=== PATIENT | male | born 1975 | race Caucasian/White ===

== ENCOUNTER → 2021-09-18 09:24 | Outpatient (REF) | payer OTHER, SELFPAY ==
--- NOTE | 2021-09-18 09:30 | CA_ITS ---
Transthoracic Echocardiogram Patient (Last, First, Middle): Elbert Tapia B Gender: Male Date of : 1975 Age: 45 Procedure Date: 09/18/2021 Procedure Type: Transthoracic Echocardiogram Location: OP Height: 182.88 cm Weight: 127.01 kg BSA: 2.46 m2 Heart Rate: bpm BP: 128 / 80 mmHg Manager Risk: BOWEN Kunz MD: Coco Mtz Carrier Blower: Franklyn William MD Symptoms: I10 HTN R60.0 EDEMA Study Quality: Technically Difficult ECG Rhythm: Sinus Conclusions: - 1. Technically difficult study despite use of definity 2. Normal LV systolic function with LVEF of 60 65% with normal diastolic filling pattern 3. Limited visualization of cardiac valves with normal cardiac valvular Doppler Findings Procedure Information Contrast agent, definity, is being given per protocol without apparent complications. Left Ventricle Normal left ventricular size, thickness, and systolic function. The visually estimated ejection fraction is between 60-65%. Regional wall motion abnormalities can not be excluded due to suboptimal endocardial definition. Spectral Doppler is indicative of a normal filling pattern. Right Ventricle The right ventricle was not well visualized. Atria The left atrium is normal in size. Interatrial shunt cannot be excluded. The right atrium was not well visualized. Aortic Valve The aortic valve was not well visualized. There is no aortic valve stenosis. There is no aortic valve regurgitation. Mitral Valve The mitral valve was not well visualized. There is mild mitral annular calcification. There is no mitral valve regurgitation. There is no mitral valve stenosis. Pulmonic Valve The pulmonic valve was not well visualized. Tricuspid Valve The tricuspid valve was not well visualized. Tricuspid regurgitation envelope is inadequate for calculation of right ventricular systolic pressure. Great Vessels The aorta was not well visualized. The pulmonary artery was not well visualized. Venous The inferior vena cava was not well visualized. Pericardium/Pleural The pericardium was not well visualized. Prior Study Comparison No prior study available for comparison. Measurements 2D Linear Measurements IVSd: 1.06 0.6-0.9/0.6-1.0 cm LVIDd: 5.78 3.9-5.3/4.2-5.9 cm LVIDd Index: 2.35 2.4-3.2/2.2-3.1 cm/m2 LVIDs: 3.54 2.0-3.6 cm LVPWd: 1.00 0.7-1.1 cm Ao Root: 3.90 2.1-3.5 cm LA Diam: 3.40 2.7-3.8/3.0-4.0 cm LAIDs Index: 1.38 1.5-2.3 cm/m2 LV Mass: 299.57 67-162/88-224 g LV Mass Index: 121.78 43-95/49-115 g/m2 LVOT Diam: 2.60 3.0+(-)1.3 cm 2D Systolic Function EF 4C: 62.90 >55% EF 2C: 73.20 >55% EF BiP: 68.40 >55% Mitral Valve MV Pk E: 0.69 MV PK A: 0.72 MV Decel Time: 114.00 E/A: 1.00 E'Lateral: 12.20 E'Medial: 8.92 E/E' Med: 7.70 E/E' Lat: 5.70 PHT: 33.00 MVA PHT: 6.67 Decel [place]: 6.04 Aortic Valve AoV Pk Emmanuel: 1.40 AoV Pk Grad: 8.00 LVOT LVOT Pk Emmanuel: 1.09 LVOT Mn Emmanuel: 0.68 LVOT VTI: 0.23 LVOT Pk Grad: 5.00 LVOT Mn Grad: 2.00 LVOT Diam: 2.60 LVOT Area: 5.31 Diastolic Function MV Pk E: 0.69 MV Pk A: 0.72 E/A: 1.00 E'Medial: 8.92 E/E' Med: 7.70 E' Laterial: 12.20 E/E' Lat: 5.70 Right Ventricle TAPSE (mm): 2.76 Great Vessels Aorta Ao Root-2D: 3.90 2.0-3.7 cm Ao Asc: 3.50 2.1-3.4 cm Updated in Other Vendor System with Status of Final Franklyn William MD electronically signed on 09/18/2021 4:02:06 PM with status of Final
== END ==
LOC: HO.CARD 09:24
PROVIDERS: Absent Provider Nurse Practitioner; PCP Nurse Practitioner; Visit Provider Nurse Practitioner Family
DX: I10 Essential (primary) hypertension (principal); R60.0 Localized edema
CPT/HCPCS: 93306; Q9957

== ENCOUNTER → 2022-09-30 09:16 | Outpatient (BNVA) | payer OTHER, SELFPAY | PROVIDERS: PCP Registered Nurse; Visit Provider Surgery Vascular Surgery | DX: I83.11 Varicose veins of right lower extremity with inflammation (principal); I89.0 Lymphedema, not elsewhere classified | CPT/HCPCS: 99212 ==

== ENCOUNTER 2022-10-27 10:28 | Outpatient (REF) | payer OTHER, SELFPAY ==
--- NOTE | ~2022-10-27 | US_ITS ---
EXAMINATION: US LOWER EXTREMITY VENOUS (REFLUX EXAM), BILATERAL CLINICAL INDICATION: Chronic venous insufficiency with lower extremity varicose veins COMPARISON: None. TECHNIQUE: Color flow triplex imaging and compression Doppler was performed to evaluate both the deep and the superficial systems bilaterally. To evaluate the superficial system, the examination was performed in the upright position. Color-flow Doppler ultrasound and compression ultrasound were utilized. In addition, maneuvers were utilized to demonstrate reflux. FINDINGS: 1. DEEP VENOUS ULTRASOUND OF THE RIGHT LOWER EXTREMITY: Common Femoral Vein: Compressible, normal respiratory variation and augmented flow. Femoral Vein: Compressible, normal color flow and augmentation. Popliteal Vein: Compressible, normal augmentation. Deep Reflux: There is no evidence of reflux in the deep system in either the common femoral vein or the popliteal vein. There is no evidence of a Ch's cyst. 2. SUPERFICIAL ULTRASOUND WITH DOPPLER OF RIGHT LOWER EXTREMITY: GREAT SAPHENOUS VEIN: Saphenofemoral Junction: 1.0 cm; Reflux: 0 ms Proximal Thigh: 0.5 cm; Reflux: 0 ms Mid Thigh: 0.4 cm; Reflux: 0 ms Above Knee: 0.4 cm; Reflux: 0 ms At Knee: 0.3 cm; Reflux: 0 ms Below Knee: 0.4 cm; Reflux: 1292 ms Mid Calf: 0.3 cm; Reflux: 0 ms Ankle: 0.3 cm; Reflux: 892 ms DUPLICATED MEDIAL GREAT SAPHENOUS VEIN: Diameter: 0.5 cm Reflux: None DUPLICATED LATERAL GREAT SAPHENOUS VEIN: Diameter: None Imaged Reflux: NA SMALL SAPHENOUS VEIN: Proximal: 0.2 cm; Reflux: 0 ms Distal: 0.3 cm; Reflux: 0 ms VEIN OF GIACOMINI: None Imaged. PERFORATORS: Location: Proximal thigh, mid thigh and proximal calf Size: 0.2 to 0.4 cm Reflux: None VARICOSITIES: Location: At the knee off of the great saphenous vein Size: 0.4 cm Reflux: 2716 ms 3. DEEP VENOUS ULTRASOUND OF THE LEFT LOWER EXTREMITY: Common Femoral Vein: Compressible, normal respiratory variation and augmented flow. Femoral Vein: Compressible, normal color flow and augmentation. Popliteal Vein: Compressible, normal augmentation. Deep Reflux: There is no evidence of reflux in the deep system in either the common femoral vein or the popliteal vein. There is no evidence of a Ch's cyst. 4. SUPERFICIAL ULTRASOUND WITH DOPPLER OF LEFT LOWER EXTREMITY: GREAT SAPHENOUS VEIN: Saphenofemoral Junction: 0.8 cm; Reflux: 0 ms Proximal Thigh: 0.5 cm; Reflux: 0 ms Mid Thigh: 0.4 cm; Reflux: 0 ms Above Knee: 0.4 cm; Reflux: 2260 ms At Knee: 0.3 cm; Reflux: 680 ms Below Knee: 0.3 cm; Reflux: 0 ms Mid Calf: 0.3 cm; Reflux: 0 ms Ankle: 0.3 cm; Reflux: 0 ms DUPLICATED MEDIAL GREAT SAPHENOUS VEIN: Diameter: 0.5 cm Reflux: None DUPLICATED LATERAL GREAT SAPHENOUS VEIN: Diameter: None Imaged Reflux: NA SMALL SAPHENOUS VEIN: Proximal: 0.3 cm; Reflux: 0 ms Distal: 0.1 cm; Reflux: 0 ms VEIN OF GIACOMINI: None Imaged. PERFORATORS: Location: Proximal and mid calf Size: 0.2 to 0.3 cm Reflux: None VARICOSITIES: Location: Proximal calf Size: 0.3 cm Reflux: None US/US venous duplex LE BI IMPRESSION: Right: Focal areas of reflux in the great saphenous vein in the proximal calf and ankle. Enlarged varicose vein off the great saphenous vein at the knee with severe reflux Left: Focal areas of reflux in the great saphenous vein in the distal thigh and knee.
== END 2022-10-27 10:29 | disposition home or self-care (01) ==
LOC: HO.US 10:28
PROVIDERS: Visit Provider Surgery Vascular Surgery
DX: I83.893 Varicose veins of bilateral lower extremities with other complications (principal)
CPT/HCPCS: 93970

== ENCOUNTER → 2022-11-18 09:04 | Outpatient (BNVA) | payer OTHER, SELFPAY | PROVIDERS: PCP Registered Nurse; Visit Provider Surgery Vascular Surgery | DX: I83.12 Varicose veins of left lower extremity with inflammation (principal) | CPT/HCPCS: 99212 ==

== ENCOUNTER → 2023-01-09 08:28 | Outpatient (BNVA) | payer OTHER, SELFPAY | PROVIDERS: PCP Registered Nurse; Visit Provider Surgery Vascular Surgery | DX: I83.12 Varicose veins of left lower extremity with inflammation (principal) | CPT/HCPCS: 36482 ==

== ENCOUNTER 2023-01-12 12:27 | Outpatient (REF) | payer OTHER, SELFPAY ==
--- NOTE | ~2023-01-12 | US_ITS ---
EXAMINATION: US VENOUS ULTRASOUND WITH DOPPLER LOWER EXTREMITY, LEFT CLINICAL INFORMATION: Status post vena seal. COMPARISON: None available. TECHNIQUE: Ultrasound of the deep veins is performed from the hip to the calf with compression sonography and color and pulse Doppler assessment. Spectral analysis with color-flow imaging is performed. FINDINGS: There is normal venous compression and respiratory variation and augmented flow. The visualized common femoral vein, superficial femoral vein, profunda femoral vein, popliteal vein, and the trifurcation region shows no evidence of deep venous thrombosis. There is thrombus visualized in the greater saphenous vein approximately 2.4 cm from the venous junction. There is no significant popliteal fossa cyst. If the patient's symptoms persist, followup ultrasound in 5 days 7 days might be of value to exclude proximal propagation from a non-visualized calf vein. US/US venous duplex LE LT IMPRESSION: 1. No DVT demonstrated in the left lower extremity. 2. There is thrombus visualized in the greater saphenous vein approximately 2.4 cm from the venous junction status post vena seal procedure.
== END 2023-01-12 12:28 | disposition home or self-care (01) ==
LOC: HO.US 12:27
PROVIDERS: PCP Registered Nurse; Visit Provider Surgery Vascular Surgery
DX: M79.605 Pain in left leg (principal)
CPT/HCPCS: 93971

== ENCOUNTER → 2023-01-27 10:39 | Outpatient (BNVA) | payer OTHER, SELFPAY | PROVIDERS: PCP Registered Nurse; Visit Provider Surgery Vascular Surgery | DX: I83.12 Varicose veins of left lower extremity with inflammation (principal) | CPT/HCPCS: 99212 ==

== ENCOUNTER 2023-11-25 14:56 | Outpatient (REF) | payer OTHER, SELFPAY ==
--- NOTE | ~2023-11-25 | US_ITS ---
EXAMINATION: US VENOUS ULTRASOUND WITH DOPPLER LOWER EXTREMITY, LEFT CLINICAL INFORMATION: Left leg edema. Status post greater saphenous vein procedure. COMPARISON: 01/12/2023 TECHNIQUE: Ultrasound of the deep veins is performed from the hip to the calf with compression sonography and color and pulse Doppler assessment. Spectral analysis with color-flow imaging is performed. FINDINGS: There is normal venous compression and respiratory variation and augmented flow. The visualized common femoral vein, superficial femoral vein, profunda femoral vein, popliteal vein, and the trifurcation region shows no evidence of deep venous thrombosis. There is no significant popliteal fossa cyst. Very limited retrograde flow into the greater saphenous vein. Thrombus in the greater saphenous vein 2.9 cm from the venous junction status post Vena seal procedure is again observed, as it was on 01/12/2023. If the patient's symptoms persist, followup ultrasound in 5 days 7 days might be of value to exclude proximal propagation from a non-visualized calf vein. US/US venous duplex LE LT IMPRESSION: No DVT demonstrated in the left lower extremity.
== END 2023-11-25 14:57 | disposition home or self-care (01) ==
LOC: HO.US 14:56
PROVIDERS: Visit Provider Nurse Practitioner Family
DX: R60.0 Localized edema (principal)
CPT/HCPCS: 93971

== ENCOUNTER 2024-03-02 08:22 | Outpatient (AMB) | payer OTHER, SELFPAY ==
--- NOTE | 2024-03-02 08:23 | A.OFFVIS_ITS ---
Vital Signs 03/02/24 08:26 Height 6 ft Weight 295 lb 6.711 oz BMI 40.1 BP 114/77 Blood Pressure Location Lt brachial Position Sitting Pulse 90 Intake Visit Reasons: Colonoscopy Screening Intake Note: Elbert presents in the office as a colonoscopy screening. CC: When patient was 26 he had diverticulosis and needed to have surgery on his colon. Allergies amoxicillin [AMOXICILLIN] Allergy (Intermediate, Verified 03/02/24 08:24) HIVES Penicillins [PENICILLINS] Allergy (Intermediate, Verified 03/02/24 08:24) HIVES HPI HPI Colonoscopy Screening: Details: 48 year old?male with past medical history of hypertension, varicose veins, lymphedema with right lower leg wound, hypercholesteremia, asthma, history of diverticulitis at age 26 is here today for pre colonoscopy screening.? Last colonoscopy 5 years ago, no polyps found.? Patient had diverticulitis and had colon resection at age 26. Ten years ago or so patient had bowel obstructions due to adhesions and had surgical repair at that time.? Denies any personal or family history of gastrointestinal disease, colon polyps, or CRC.? Denies history of difficulty with sedation or anesthesia in the past.? Negative for history of sleep apnea.? Denies any history of cardiac, renal, pulmonary, or hepatic disease.?? No history of infectious? diseases like hepatitis A, B, C, HIV or tuberculosis.? Patient is not on any anticoagulation [facility] Medical History (Updated 03/02/24 @ 08:40 by Marcy Mary [facility]) Hyperlipidemia HTN (hypertension) Diverticulitis of colon with perforation Surgical History Hx of colonoscopy Status post ablation of incompetent vein using laser (~01/2023) Social History Patient Tobacco Use Status: Current everyday Tobacco user Tobacco use type: Cigarette Cigarette Packs Per Day: 1 Review of Systems Const Denies weight gain and Denies weight loss ENT Reports no additional complaints, Denies dysphagia and Denies odynophagia Card Reports no additional complaints Resp Reports no additional complaints GI Denies abdominal pain, Denies belching, Denies melena, Denies bloating, Denies change in bowel habits, Denies dysphagia, Denies excessive flatus, Denies dyspepsia, Denies heartburn, Denies diarrhea, Denies loose stools, Denies nausea, Denies odynophagia and Denies vomiting Reports no additional complaints Musc Reports no additional complaints Neuro Reports no additional complaints Psych Reports no additional complaints Endo Reports no additional complaints Physical Exam Vital Signs: Last Vital Signs Pulse 90 03/02/24 08:26 BP 114/77 03/02/24 08:26 BMI result Body Mass Index 40.1 Const General: healthy appearing and no acute distress Nutritional Appearance: well nourished and obese Orientation/consciousness: patient oriented x3 Resp Effort & Inspection: normal respiratory effort, able to speak in complete sentences, no tracheal deviation and symmetric chest movement Auscultation: clear to auscultation bilaterally Cardio Rate: regular rate GI Inspection: Yes normal to inspection, No distended and Yes obesity Palpation (GI): Soft to palpation, not firm, nontender and No hepatosplenomegaly present Auscultation: normal bowel sounds General: Yes no CVA tenderness Back/Spine/Pelvis Back: no CVA tenderness Skin General skin exam: elasticity normal, turgor normal and dry skin Neuro General: patient oriented x3 Psych Appearance: grossly normal Mental Status: mental status grossly normal Assessment & Plan Assessment & Plan (1) Screen for colon cancer: Code(s): Z12.11 - Encounter for screening for malignant neoplasm of colon Plan Patient denies any GI, cardiac or respiratory symptoms at this time.? Denies any issues with anesthesia in the past.? Denies any history of sleep apnea.? No history infectious diseases in the past or present.? Not on any anticoagulation therapy.? No family or personal history of colon cancer or polyps.? Patient denies melena, hematochezia, unintentional weight loss or ribbon like stools.? Discussed at length the pre-procedure,? prep, diet & medications as well as what to expect prior, during and after the procedure.?? Stressed the importance of good bowel prep.? Recommended the use of Vaseline or Calmoseptine OTC & baby wipes with bowel movements to promote comfort.? ?Patient verbalizes understanding and agrees to plan of care.? He was given the opportunity to ask questions and all questions answered.? We will see him after the procedure.? Medications: New bisacodyl (Dulcolax (bisacodyl)) take 4 tabs at noon the day before your colonoscopy 20 mg (4 x 5 mg) PO ONCE 1 day 4 tabs 0RF Z12.11 - Encounter for screening for malignant neoplasm of colon polyethylene glycol 3350 (Miralax) As directed by gastroenterology department at [facility] 238 grams PO ONCE 238 grams 0RF Z12.11 - Encounter for screening for malignant neoplasm of colon Coding Level of Care Code New Pt Level 3 (66749) Diagnoses Screen for colon cancer Z12.11 Time Spent (min) 40 Comment 30 minutes spent with patient and additional 10 minutes spent reviewing his records
[2024-03-02 08:26] VITALS: BP 114/77; PULSE 90; BMI 40.1
== END 2024-03-02 09:14 | disposition home or self-care (01) ==
PROVIDERS: PCP Registered Nurse; Visit Provider Nurse Practitioner Family
DX: Z12.11 Encounter for screening for malignant neoplasm of colon (principal); Z01.818 Encounter for other preprocedural examination
CPT/HCPCS: 99203

== ENCOUNTER → 2024-03-02 08:22 | Outpatient (BNVA) | payer OTHER, SELFPAY | PROVIDERS: PCP Registered Nurse; Visit Provider Nurse Practitioner Family | DX: Z12.11 Encounter for screening for malignant neoplasm of colon (principal) | CPT/HCPCS: 99202 ==

== ENCOUNTER 2024-03-04 12:34 | Outpatient (REF) | payer OTHER, SELFPAY ==
--- NOTE | ~2024-03-04 | US_ITS ---
EXAMINATION: US VENOUS ULTRASOUND WITH DOPPLER LOWER EXTREMITY, BILATERAL CLINICAL INFORMATION: Bilateral renal insufficiency with superficial thrombosis in the left lower extremity COMPARISON: 11/25/2023, 01/12/2023 TECHNIQUE: Ultrasound of the deep veins is performed from the hip to the calf with compression sonography and color and pulse Doppler assessment. Spectral analysis with color-flow imaging is performed. FINDINGS: RIGHT: There is normal venous compression and respiratory variation and augmented flow. The visualized common femoral vein, superficial femoral vein, profunda femoral vein, popliteal vein, and the trifurcation region shows no evidence of deep venous thrombosis. There is no significant popliteal fossa cyst. LEFT: There is normal venous compression and respiratory variation and augmented flow. The visualized common femoral vein, superficial femoral vein, profunda femoral vein, popliteal vein, and the trifurcation region shows no evidence of deep venous thrombosis. There is no significant popliteal fossa cyst. If the patient's symptoms persist, followup ultrasound in 5 days 7 days might be of value to exclude proximal propagation from a non-visualized calf vein. There is inguinal lymphadenopathy is seen in both groins, measured 3.8 x 1.0 x 2.1 cm on the right and 1.9 x 0.7 x 2.0 cm on the left US/US venous duplex LE BI IMPRESSION: No DVT demonstrated in bilateral lower extremity. Inguinal lymphadenopathy seen bilaterally, correlate clinically
== END 2024-03-04 12:35 | disposition home or self-care (01) ==
LOC: HO.US 12:34
PROVIDERS: Visit Provider Student in an Organized Health Care Education/Training Program
DX: R60.0 Localized edema (principal)
CPT/HCPCS: 93970

== ENCOUNTER 2024-05-24 09:54 | Outpatient (REF) | payer OTHER, SELFPAY ==
[2024-05-24 11:18] LABS: MANUAL DIFF FLAG NO
[2024-05-24 11:33] LABS: Basophils Absolute Auto 0.1 X10*3/uL (0.0-0.2); Basophils Percent Auto 0.4 % (0-2); Eosinophils Absolute Auto 0.5 X10*3/uL (0.0-0.4); Eosinophils Percent Auto 3.5 % (0-4); Hematocrit 43.6 % (42.0-52.0); Hemoglobin 14.4 g/dl (14.0-18.0); Imm Gran Abs Auto 0.07 X10*3/uL (0.00-0.03); Imm Gran Pct Auto 0.5 % (0.0-0.4); Lymphocytes Absolute Auto 2.5 X10*3/uL (1.2-4.9); Lymphocytes Percent Auto 19.1 % (20-40); Mean Corpuscular Hemoglobin 28.3 pg (27.0-33.0); Mean Corpuscular Volume 85.8 fL (80.0-98.0); Mean Platelet Volume 9.7 fL (9.4-12.4); Monocytes Absolute Auto 0.8 X10*3/uL (0.1-1.2); Monocytes Percent Auto 6.1 % (2-11); Neutrophils Percent Auto 70.4 % (45-73); Platelet Count 347 X10*3/uL (160-400); Red Blood Count 5.08 X10*6/uL (4.60-5.80); Red Cell Distribution Width 12.2 % (11.0-16.0); White Blood Count 12.9 X10*3/uL (4.8-10.8)
[2024-05-24 11:34] LABS: Estimated Average Glucose 108 mg/dL; Hemoglobin A1c % 5.4 % (<6.0)
[2024-05-24 12:08] LABS: Alanine Aminotransferase 11 U/L (0-40); Albumin Level 4.2 g/dL (3.5-5.0); Alkaline Phosphatase 68 U/L (39-117); Anion Gap 13 (12-20); Aspartate Amino Transferase 16 U/L (5-37); Bilirubin Total 0.4 mg/dL (0.0-1.0); Blood Urea Nitrogen 15 mg/dL (9-16); Carbon Dioxide 30 mmol/L (22-29); Chloride 102 mmol/L (96-108); Cholesterol 148 mg/dL (<200); Estimated Glomerular Filt Rate > 60; Glucose Random 99 mg/dL (60-115); HDL Cholesterol 34 mg/dL (>40); LDL Cholesterol Calculated 85 mg/dL (<100); Sodium 141 mmol/L (135-145); Total Protein 7.6 g/dL (6.5-8.0); Triglycerides 147 mg/dL (<150)
[2024-05-24 12:10] LABS: HBS Num1 0.53 mIU/mL (0-7.99); HBc Num1 0.25 S/CO (0.00-0.79); HBsAGNum1 0.31 S/CO (0.00-0.99); HIV AB/AG Nonreactive (Nonreactive); HIV Num 1 0.12 S/CO (0.00-0.99); Hepatitis B Core Antibody Nonreactive (Nonreactive); Hepatitis B Surface Antigen Negative (Negative); ~HepC Num1 0.22 S/CO (0.00-0.79); ~Hepatitis B Surface Antibody NONREACTIVE (Nonreactive); ~Hepatitis C Antibody Nonreactive (Nonreactive)
[2024-05-24 12:11] LABS: Syphilis Screen Nonreactive (Nonreactive)
[2024-05-24 12:17] LABS: TSH reflex Free T4 1.29 uIU/mL (0.32-4.0); Vitamin D 25-OH Total 34.6 ng/mL (>30)
== END 2024-05-24 09:55 | disposition home or self-care (01) ==
LOC: HO.HHCL 09:54
PROVIDERS: Nurse Practitioner Family; Visit Provider Student in an Organized Health Care Education/Training Program
DX: Z00.00 Encounter for general adult medical examination without abnormal findings (principal); Z11.4 Encounter for screening for human immunodeficiency virus [HIV]; E66.01 Morbid (severe) obesity due to excess calories
CPT/HCPCS: 36415; 80053; 80061; 82306; 83036; 84443; 85025; 86704; 86706; 86780; 86803; 87340; 87389

== ENCOUNTER 2024-06-02 14:56 | Outpatient (AMB) | payer OTHER, SELFPAY ==
--- NOTE | 2024-06-02 15:07 | A.OFFVIS_ITS ---
Vital Signs 06/02/24 15:08 Height 6 ft Weight 295 lb BMI 40.0 Intake Visit Reasons: PCP re-referral Lymphedema Hx ablations 2022 Intake Note: follow up LE swelling w/ Hx of Left Venaseal 01/09/23. Pt states his legs are feeling much better and has been exercising and eating healthier, states he lost weight since last visit, he is wearing compression when on his feet but still gets some swelling bilateral LE. Accompanied by: Self / Same As Patient Allergies amoxicillin [AMOXICILLIN] Allergy (Intermediate, Verified 06/02/24 15:11) HIVES Penicillins [PENICILLINS] Allergy (Intermediate, Verified 06/02/24 15:11) HIVES HPI HPI PCP re-referral Lymphedema Hx ablations 2022: Details: Very pleasant 48-year-old gentleman presents for follow-up regarding lower extremities. He had undergone left great saphenous vein Cyanoacralate ablation on 01/09/2023. He reports he was doing fairly well with that. In addition he has gotten back into exercise. He has has actually lost nearly 55 lb. 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 He now presents for routine follow-up. [facility] Medical History Hyperlipidemia HTN (hypertension) Diverticulitis of colon with perforation Surgical History Hx of colonoscopy Status post ablation of incompetent vein using laser (~01/2023) Social History Patient Tobacco Use Status: Current everyday Tobacco user Tobacco use type: Cigarette Cigarette Packs Per Day: 1 Review of Systems Const All systems reviewed & are unremarkable except as noted in HPI and below Reports no additional complaints ENT Reports Normal hearing present Card Denies chest pain, Denies chest pain at rest, Denies chest pain with activity and Denies pedal edema Resp Denies cough GI Denies abdominal pain Musc Denies abnormal gait, Denies muscle cramps and Denies radiating pain into limb Skin/Breast Denies skin ulcer and Denies wounds Neuro Reports Normal hearing present and Denies abnormal gait Psych Reports no additional complaints Physical Exam Vital Signs: BMI result Body Mass Index 40.0 Const General: cooperative, healthy appearing and comfortable Orientation/consciousness: oriented to person, oriented to place and oriented to time HEENT Head: Yes normal to inspection Neck Neck: Yes normal visual inspection Carotids: no bruits Chest Chest palpation & inspection: normal inspection of the chest Resp Effort & Inspection: normal respiratory effort and able to speak in complete sentences Auscultation: clear to auscultation bilaterally, no crackles, no rales, no rhonchi and no wheezes Cardio Rate: regular rate Rhythm: regular rhythm Heart sounds: S1 normal heart sound present and S2 normal heart sound present Bruits: no carotid bruits Peripheral pulses: Peripheral pulses 2+ throughout GI Inspection: Yes normal to inspection Skin Wounds: no wounds Hair: normal Neuro General: oriented to person, oriented to place and oriented to time Cranial nerves: Yes CN's II-XII intact bilaterally and Yes Normal hearing present Cognition (Neuro): normal cognition Motor exam (neuro): 5/5 motor strength present throughout Extrem Other: venous exam: +1 edema General: No clubbing, No cyanosis and Yes edema Psych Appearance: grossly normal Mental Status: mental status grossly normal Speech and movement: Normal speech and movement present Assessment & Plan Assessment & Plan (1) Varicose veins of left lower extremity with inflammation: Comment: 01/09/2023 - left great saphenous vein Cyanoacralate ablation Code(s): I83.12 - Varicose veins of left lower extremity with inflammation Category: Medical Plan: In short patient has legs are doing significantly better. I did congratulate him on his weight loss and his overall health. He is doing much better with his lower extremities. He is compliant with compression. We once again did discus s routine conservative measures including compression elevation and exercise. At the current time I do believe his legs are doing very well. Should he require additional assistance with the swelling in the future such as lymphedema pumps would be happy to see him once again. Is stable from our perspective and will follow up with us on an as-needed basis. Thank you for allowing us to assist in his care. If there are any questions or concerns please do not hesitate to contact us. Coding Level of Care Code Est Pt Level 3 (50866) Diagnoses Varicose veins of left lower extremity with inflammation I83.12
[2024-06-02 15:08] VITALS: BMI 40.0
== END 2024-06-02 15:24 | disposition home or self-care (01) ==
PROVIDERS: Visit Provider Surgery Vascular Surgery
DX: I83.12 Varicose veins of left lower extremity with inflammation (principal)
CPT/HCPCS: 99213

== ENCOUNTER → 2024-06-02 14:56 | Outpatient (BNVA) | payer OTHER, SELFPAY | PROVIDERS: Visit Provider Surgery Vascular Surgery | DX: I83.12 Varicose veins of left lower extremity with inflammation (principal) | CPT/HCPCS: 99212 ==

== ENCOUNTER 2024-08-18 06:29 | Day surgery (SDC) | payer OTHER, SELFPAY ==
[2024-08-16 13:41] VITALS: BMI 40.1
[2024-08-18 06:53] VITALS: BP 136/88; PULSE 85; RESP 16; TEMP 36.6; O2SAT 93
[2024-08-18] MEDS: Lactated Ringers 1,000 ML 100 ML IVCONT (07:00)
--- NOTE | 2024-08-18 07:50 | MHC.SHP ---
Pre-Procedural Eval Section A - 24 Hr Update-Section A only Date of Service: 08/18/24 Section B - Complete if H&P > 30 days Chief Complaint: screening Details of Present Illness: Hyperlipidemia HTN (hypertension) Diverticulitis of colon with perforation Surgical History Hx of colonoscopy Status post ablation of incompetent vein using laser (~01/2023) Present Medications: see Short Stay Collaborative assessment Allergies: Allergies Allergy/AdvReac Type Severity Reaction Status Date / Time amoxicillin [AMOXICILLIN] Allergy Intermediate HIVES Verified 06/02/24 15:11 Penicillins [PENICILLINS] Allergy Intermediate HIVES Verified 06/02/24 15:11 Review of Systems Review of Systems Comment: Ten point ROS negative Exam Exam Comment: Gen appear: No acute distress HEENT: no icterus Chest: No overt resp distress Abd: soft, nontender, nondistended Psych: Stable affect, answering questions appropriately Neuro: A/Ox3 noted to move all extremities spontaneously Ext: no peripheral edema Plan Diagnosis/Plan: Unchanged I have reviewed the history and physical and performed a pertinent physical examination on my patient. No changes have occurred unless specified. Time Spent With Patient Time: Total time managing care of this patient today ____ minutes.
--- NOTE | 2024-08-18 08:05 | HO.ANESPROP2 ---
Documented by User: Sally Coulter NP 08/17/24 08:35 HPI - Anesthesia Eval Consult details Narrative: 48yo M for Colonoscopy BMI 40 PMFSH Active Problems Active Problems: All Active Problems Varicose veins of left lower extremity with inflammation (Acute) Lymphedema (Acute) Varicose veins of right lower extremity with inflammation (Acute) Past Medical History Medical History Hyperlipidemia HTN (hypertension) Diverticulitis of colon with perforation Surgical History Surgical History Hx of colonoscopy Status post ablation of incompetent vein using laser (~01/2023) Social History Social History Patient Tobacco Use Status: Current everyday Tobacco user Tobacco use type: Cigarette Cigarette Packs Per Day: 1 Advance Directives: No Advance Directives Information Provided: Yes Meds Allergies Allergy/AdvReac Type Severity Reaction Status Date / Time amoxicillin [AMOXICILLIN] Allergy Intermediate HIVES Verified 06/02/24 15:11 Penicillins [PENICILLINS] Allergy Intermediate HIVES Verified 06/02/24 15:11 Home Medications ?Medication ?Instructions ?Recorded ?Confirmed ?Last Taken ?Type albuterol sulfate 2.5 mg/0.5 mL mg inhalation DAILY 09/30/22 Unknown History solution for nebulization atorvastatin 20 mg tablet 20 mg PO DAILY 09/30/22 08/16/24 Unknown History furosemide 20 mg tablet 40 mg PO QAM 09/30/22 08/16/24 Unknown History olmesartan 20 mg tablet 20 mg PO DAILY 01/27/23 08/16/24 Unknown History Exam Height,Weight and Vital Signs: Height 6 ft Weight 134 kg Assessment and Plan Assessment Anesthesia Assessment: Chart Reviewed Documented by User: Annette Aviles DO 08/18/24 08:08 PMFSH Past Medical History Medical History Hyperlipidemia HTN (hypertension) Diverticulitis of colon with perforation Family History Family history of problems with anesthesia: No Surgical History Surgical History Hx of colonoscopy Status post ablation of incompetent vein using laser (~01/2023) History of Problems with Anesthesia: No Social History Social History Patient Tobacco Use Status: Current everyday Tobacco user Tobacco use type: Cigarette Cigarette Packs Per Day: 1 Advance Directives: No Advance Directives Information Provided: Yes Meds Allergies Allergy/AdvReac Type Severity Reaction Status Date / Time amoxicillin [AMOXICILLIN] Allergy Intermediate HIVES Verified 06/02/24 15:11 Penicillins [PENICILLINS] Allergy Intermediate HIVES Verified 06/02/24 15:11 Home Medications ?Medication ?Instructions ?Recorded ?Confirmed ?Last Taken ?Type albuterol sulfate 2.5 mg/0.5 mL mg inhalation DAILY 09/30/22 Unknown History solution for nebulization atorvastatin 20 mg tablet 20 mg PO DAILY 09/30/22 08/16/24 Unknown History furosemide 20 mg tablet 40 mg PO QAM 09/30/22 08/16/24 Unknown History olmesartan 20 mg tablet 20 mg PO DAILY 01/27/23 08/16/24 Unknown History Exam Exam Date and Time: 08/18/24 0805 Height,Weight and Vital Signs: Height 6 ft Weight 134 kg Vital Signs Temperature 97.8 F 08/18/24 06:53 Pulse Rate 85 08/18/24 06:53 Respiratory Rate 16 08/18/24 06:53 Blood Pressure 136/88 08/18/24 06:53 Pulse Oximetry 93 08/18/24 06:53 Oxygen Delivery Method Room Air 08/18/24 06:53 Temperature 97.8 F 08/18/24 06:53 Pulse Rate 85 08/18/24 06:53 Respiratory Rate 16 08/18/24 06:53 Blood Pressure 136/88 08/18/24 06:53 Pulse Oximetry 93 08/18/24 06:53 Oxygen Delivery Method Room Air 08/18/24 06:53 Airway Mallampati Class: III TM Dist: >3cm Neck ROM: Full Loose/Missing/Broken Teeth: Yes (multiple broken/missing teeth) Heart: S1S2 Lungs: CTAB Assessment and Plan Assessment Anesthesia Assessment: Anesthesia Plan Discussed and Chart Reviewed Final Anesthetic Review Family History of Problems with Anesthesia: No History of Problems with Anesthesia: No NPO: Yes ASA Class: II Final Preanesthetic Review: No Changes in Pt Med Stat, Meds/Allgs Chart Reviewed, Consent Obtained/Reviewed and Anes Risks/Benef Reviewed Patient Risk: Low Procedure Risk: Low Anesthetic Plan Anesthetic Plan: MAC: and Agree w/ Assess. and Plan Disposition: Standard PACU
--- NOTE | 2024-08-18 09:17 | P.OPN-COLO_ITS ---
Colonoscopy Operative Note Operative Note Date of Service: 08/18/24 Narrative: Procedure: Colonoscopy Indication: Screening, hx of complicated diverticulitis Endoscopist: Mine Nascimento MD Anesthesia Provider: Barbara Galeana CRNA Anesthesia type: MAC Instrument: Olympus [id number]-[id number] Consent: Indication, risks vs benefits, and alternatives were discussed with the patient who gave written informed consent to proceed. EKG, pulse, pulse oximetry and blood pressure were monitored throughout the procedure. Please see shirazst lima flowsheet. Procedure: The patient was brought to the procedure room and placed in the left lateral decubitus position. IV medications were administered by the anesthesia provider in attendance. A digital rectal exam was performed which was abnormal due to finding of hemorrhoids. A distal attachment cap was affixed to the tip of the colonoscope which was then inserted through the anus and advanced through the colon to the cecum at 70 cm,and terminal ileum. Appendiceal orifice and ileocecal valve were identified. Mucosa was carefully examined under high defin ition white light as the instrument was slowly withdrawn in a retrograde panoramic fashion. Retroflexion was performed in rectum. The procedure was not difficult. There were no immediate obvious complications. The quality of the prep was BBPS: 2+1+2 = inadequate Withdrawal time 9 minutes. Limitations: Poor prep. Findings: Mucosa: Copious opaque liquid and semi solid stool and debris throughout the colon precluding evaluation of underlying mucosa. There was a colo-colonic anastomosis in the distal sigmoid colon. Protruding lesions: * Medium internal hemorrhoids without stigmata of recent bleeding. Excavated lesions: * Severe diverticulosis of left sided colon. Impression: 1. Poor prep 2. Surgical anastomosis 3. Diverticulosis 4. External and internal hemorrhoids Recommendations: - Repeat colo within 12 months
[2024-08-18 09:24] VITALS: BP 104/66; PULSE 84; RESP 16; TEMP 36.1; O2SAT 93
[2024-08-18 09:35] VITALS: BP 138/86; PULSE 79; RESP 16; TEMP 36.2; O2SAT 94
== END 2024-08-18 09:55 | disposition home or self-care (01) ==
PROVIDERS: PCP Student in an Organized Health Care Education/Training Program; Visit Provider Internal Medicine
PROC: 0DJD8ZZ Inspection of Lower Intestinal Tract, Via Natural or Artificial Opening Endoscopic (ICD-10-PCS; CPT 45378; principal; 2024-08-18 07:40)
DX: Z12.11 Encounter for screening for malignant neoplasm of colon (principal); Z87.19 Personal history of other diseases of the digestive system; Z98.0 Intestinal bypass and anastomosis status; K57.30 Diverticulosis of large intestine without perforation or abscess without bleeding; K64.8 Other hemorrhoids; K64.4 Residual hemorrhoidal skin tags; I10 Essential (primary) hypertension; E78.5 Hyperlipidemia, unspecified; Z79.899 Other long term (current) drug therapy; Z88.0 Allergy status to penicillin; Z88.1 Allergy status to other antibiotic agents; F17.210 Nicotine dependence, cigarettes, uncomplicated
CPT/HCPCS: 45378; J2003; J2704

== ENCOUNTER → 2024-08-18 06:29 | Outpatient (BNV) | payer OTHER, SELFPAY | PROVIDERS: PCP Student in an Organized Health Care Education/Training Program; Visit Provider Internal Medicine | DX: Z12.11 Encounter for screening for malignant neoplasm of colon (principal); K57.30 Diverticulosis of large intestine without perforation or abscess without bleeding; Z91.199 Patient's noncompliance with other medical treatment and regimen due to unspecified reason; K64.8 Other hemorrhoids | CPT/HCPCS: 45378 ==

== ENCOUNTER 2025-08-04 10:57 | Outpatient (REF) | payer OTHER, SELFPAY ==
--- OUTSIDE RECORDS SUMMARY | 2025-08-04 10:00 | XMS_ITS | Encounter Summary ---
Author Organization [employer] Address [address] [place] [address] Care Team Providers Care Maintenance Fitter Name Role Phone Nicole La MD Primary Care Pro vider Encounter Details Date Type Department Care Team (Latest Contact Info) Description 08/04/2025 10:00 AM EDT Office Visit [facility] [address] [place] [address] Morbid obesity (CMS/HCC) (HCC) (Primary Dx); Venous insufficiency of both lower extremities; Penicillin allergy; Preop examination Social History Tobacco Use Types Packs/Day Years Used Date Smoking Tobacco: Every Day Cigarettes 0.8 7 Passive Smoke Exposure: Current Smokeless Tobacco: Never Comments:Started smoking at his 12 y of age until now ,stopped for 4 years but again again. 1 PQT a day ,smoking in average for 32 y . PQT a year calc 32 Alcohol Use Standard Drinks/Week Comments Yes 0 (1 standard drink = 0.6 oz pur e alcohol) social Depression Answer Date Recorded Patient Health Questionnaire-9 Score 1 08/04/2025 Patient Health Questionnaire-9 Score 1 08/04/2025 Last PHQ-9: Questionnaire Data Not on file 1 Housing Stability Answer Date Recorded What is your housing situation today? I have elsaelena rhodes 08/04/[address] you li ve. Do you have problems with any of the following? None of the above 08/04/2025 Food Insecurity Answer Date Recorded Within the past 12 months, y ou worried that your food would run out before you got money to buy more: Never True 08/04/2025 Within the past 12 months,th e food you bought just didn't last and you didn't have enough money to get more: Never True Transportation Answer Date Recorded In the past 12 months, has l ack of transportation kept you from medical appts, meetings, work or from getting things needed for daily living? No 08/04/2025 Utilities Answer Date Recorded In the past 12 months, has t he electric, gas, oil or water company threatened to shut off services in your home? No 08/04/2025 Depression Answer Date Recorded Patient Health Questionnaire-2 Score 0 08/04/2025 Internet Access Answer Date Recorded Internet Access Q1 Yes 08/04/2025 Internet Access Q2 Not on file 08/04/2025 Sex and Gender Information Value Date Recorded Sex Assigned at Male 08/04/2022 10:38 AM EDT Legal Sex Male 10:38 AM EDT Gender Identity Male 08/04/2022 10:38 AM EDT Sexual Orientation Straight 08/04/2022 10 :38 AM EDT documented as of this encounter Last Filed Vital Signs Vital Sign Reading Time Taken Comments Blood Pressure 132/72 08/04/2025 11:22 AM EDT Pulse 77 08/04/2025 10:07 AM EDT Temperature 36 C (96.8 F) 08/04/2025 10:07 AM EDT Respiratory Rate 18 08/04/2025 10:07 AM EDT Oxygen Saturation 98% 08/04/2025 10:07 AM EDT Inhaled Oxygen Concentration - - Weight 139 kg (306 lb) 08/04/2025 10:07 AM EDT Height 182.9 cm (6') 08/04/2025 10:07 AM EDT Body Mass Index 41.5 08/04/2025 10:07 AM EDT documented in this encounter Functional Status * Over the past 2 weeks, how often have you been bothered by any of the following problems? Question Answer Date of Assessment Author Patient Health Questionnaire -2 Score 0 08/04/2025 10:20 AM EDT Garland Jones MA * Little interest or pleasure in doing things Answer Date of Assessment Author Not at all 08/04/2025 10:20 AM EDT Madeline Jones MA * Feeling down, depressed, or hopeless Answer Date of Assessment Author Not at all 08/04/2025 10:20 AM EDT Madeline Jones MA * Trouble falling or staying asleep, or sleeping too much Answer Date of Assessment Author Several days 08/04/2025 10:20 AM Madeline Martin MA * Feeling tired or having little energy Answer Date of Assessment Author Not at all 08/04/2025 10:20 AM Madeline Martin MA * Poor appetite or overeating Answer Date of Assessment Author Not at all 08/04/2025 10:20 AM Madeline Martin MA * Feeling bad about yourself - or that you are a failure or have let yourself or your family down Answer Date of Assessment Author Not at all 08/04/2025 10:20 AM Madeline Martin MA * Trouble concentrating on things, such as reading the newspaper or watching television Answer Date of Assessment Author Not at all 08/04/2025 10:20 AM Madeline Martin MA * Moving or speaking so slowly that other people could have noticed? Or the opposite - being so fidgety or restless that you have been moving around a lot more than usual. Answer Date of Assessment Author Not at all 08/04/2025 10:20 AM Madeline Martin MA * Thoughts that you would be better off or hurting yourself in some way Answer Date of Assessment Author Not at all 08/04/2025 10:20 AM Madeline Martin MA * Patient Health Questionnaire-9 Score Answer Date of Assessment Author 1 08/04/2025 10:20 AM Madeline Martin MA * How difficult have these problems made it for you to do your work, take care of things at home, or get along with other people? Answer Date of Assessment Author Not difficult at all 08/04/2025 10:20 AM Madeline Rodriguez MA * Over the last 2 weeks, how often have you been bothered by any of the following problems? Question Answer Date of Assessment Author Feeling nervous, anxious, or on edge 1 08/04/2025 10:21 AM Garland Martin MA Not being able to stop or control worrying 0 08/04/2025 10:21 AM Garland Martin MA Worrying too much about different things 1 08/04/2025 10:21 AM EDT Garland Jones MA Trouble relaxing 0 08/04/2025 10:21 AM EDT Madeline Jones MA Being so restless that it is hard to sit still 0 08/04/2025 10:21 AM EDT Garland Jones MA Becoming easily annoyed or irritable 1 08/04/2025 10:21 AM EDT Garland Jones MA Feeling afraid as if somethi ng awful might happen 0 08/04/2025 10:21 AM EDT Garland Jones MA [id number] Total Score 3 08/04/2025 10:21 AM EDT Madeline Jones MA documented as of this encounter Plan of Treatment Scheduled Orders Name Type Priority Associated Diagnoses Orde r Schedule CBC auto differential Lab Routine Preop examination Expected: 08/04/2025 (Approximate), Expires: 08/04/2026 Comprehensive Metabolic Panel Lab Routine Preop examination Expected: 08/04/2025 (Approximate), Expires: 08/04/2026 documented as of this encounter Procedures Procedure Name Priority Date/Time Associated Diagnosis Comments ECG 12-LEAD Routine 08/04/2025 11:24 AM EDT Preop examination documented in this encounter Results * ECG 12 lead (08/04/2025 11:24 AM EDT) Narrative Suzette Anderson NP - 08/04/2025 11:24 AM EDT Normal sinus rhythm HR- [address] changes us Suzette Anderson NP ECG ORDERABLES Final Result documented in this encounter Visit Diagnoses Diagnosis Morbid obesity (CMS/HCC) (HCC)- Primary Morbid obesity Venous insufficiency of both lower extremities Penicillin allergy Personal history of allergy to penicillin Preop examination Unspecified pre-operative examination documented in this encounter Additional Health Concerns Assessment Noted Time PHQ-9 Depression Total Score: 1 08/04/20 25 10:20 AM EDT documented as of this encounter Care Teams Maintenance Fitter Relationship Specialty Start Date End Date Nicole La MD [address] [place] [id number] PCP - General Internal Medicine 07/15/23 documented as of this encounter
--- OUTSIDE RECORDS SUMMARY | 2025-08-04 12:27 | XMS_ITS | Encounter Summary ---
Author Organization [employer] Address [address] [facility] 7t [place] [address] Care Team Providers Care Web Ui Developer Name Role Phone Anamika Salazar BISQUE TILE BURNER Primary Care Provider Nicole Henley MD Primary Care Pro vider Reason for Visit * Reason Onset Date Comments Medical Clearance/ Follow up 04/24/2023 Encounter Details Date Type Department Care Team (Late st Contact Info) Description 04/24/2023 Telephone [facility] [address] [place] [address] Anamika Salazar FNP Medical Clearance/ Follow up Social History Tobacco Use Types Packs/Day Years Used Date Smoking Tobacco: Every Day Cigarettes 0.8 7 Smokeless Tobacco: Never Alcohol Use Standard Drinks/Week Comments Not Currently 0 (1 standard drink = 0.6 oz pur e alcohol) Depression Answer Date Recorded Patient Health Questionnaire-9 Score 0 09/18/2022 Depression Answer Date Recorded Patient Health Questionnaire-2 Score 0 03/27/2023 Sex and Gender Information Value Date Recorded Sex Assigned at Male 08/04/2022 10:38 AM EDT Legal Sex Male 10:38 AM EDT Gender Identity Male 08/04/2022 10:38 AM EDT Sexual Orientation Straight 08/04/2022 10 :38 AM EDT COVID-19 Exposure Response Date Recorded In the last 10 days, have yo u been in contact with someone who was confirmed or suspected to have Coronavirus/COVID-19? No / Unsure 03/27/2023 1:38 PM EDT documented as of this encounter Miscellaneous Notes * Telephone Encounter - Winnie Armstrong LPN - 04/28/2023 8:12 AM EDT This is not for the Forms nurses, it is for a follow up appt with the provider. Patient can drop off forms if needed with Medical Records that is the process. Thank you. * Telephone Encounter - Fatmata Garcia Gabe - 04/24/2023 11:09 AM EDT Tc from pt requesting a follow up appt with provider in order to Obtain a loss of consciences form and a Medical Clearance to Obtain Drivers License. Please contact pt at [phone] documented in this encounter Plan of Treatment Not on file documented as of this encounter Visit Diagnoses Not on filedocumented in this encounter Additional Health Concerns Assessment Noted Time PHQ-9 Depression Total Score: 0 09/18/20 9:29 AM EST documented as of this encounter Care Teams Web Ui Developer Relationship Specialty Start Date End Date Anamika Salazar FNP PCP - General Family Medicine 05/30/22 07/14/23 Nicole La MD [address] [place] [id number] PCP - General Internal Medicine 07/15/23 documented as of this encounter
--- OUTSIDE RECORDS SUMMARY | 2025-08-04 12:27 | XMS_ITS | Encounter Summary ---
Author Organization [employer] Address [address] [facility] [address] [place] [address] Care Team Providers Care Deep Tissue Massage Therapist Name Role Phone Nicole La MD Primary Care Pro vider Encounter Details Date Type Department Care Team (Late st Contact Info) Description 01/11/2025 Orders Only [facility] [address] [place], [place] [phone] Provider, MD Fercho Social History Tobacco Use Types Packs/Day Years [...] Date Recorded Patient Health Questionnaire-9 Score 0 04/08/2024 Patient Health Questionnaire-9 Score 0 04/08/2024 Last PHQ-9: Questionnaire Data Not on file 0 04/08/2024 Housing Stability Answer Date Recorded What is your housing situation today? I have elsa rhodes 11/24/[address] you li ve. Do you have problems with any of the following? None of the above 11/24/2023 Food Insecurity Answer Date Recorded Within the past 12 months, y ou worried that your food would run out before you got money to buy more: Never True 11/24/2023 Within the past 12 months,th e food you bought just didn't last and you didn't have enough money to get more: Never True Transportation Answer Date Recorded In the past 12 months, has l ack of transportation kept you from medical appts, meetings, work or from getting things needed for daily living? No 11/24/2023 Utilities Answer Date Recorded In the past 12 months, has t he electric, gas, oil or water company threatened to shut off services in your home? No 11/24/2023 Depression Answer Date Recorded Patient Health Questionnaire-2 Score 0 04/08/2024 Sex and Gender Information Value Date Recorded Sex Assigned at Male 08/04/2022 10:38 AM EDT Legal Sex Male 10:38 AM EDT Gender Identity Male 08/04/2022 10:38 AM EDT Sexual Orientation Straight 08/04/2022 10 :38 AM EDT documented as of this encounter Plan of Treatment Not on file documented as of this encounter Procedures Procedure Name Priority Date/Time Associated Diagnosis Comments COLONOSCOPY Routine 08/18/2024 8:19 AM EST documented in this encounter Results * Hm Colonoscopy (08/18/2024 8:19 AM EST) Colonoscopy Normal Normal Narrative Vero Lee - 08/18/2024 8:19 AM EST Recommendations: Repeat colo within 12 months (see external hospital admission note on 08/18/2024 us Historical Provider HEALTH MAINTENANCE Edited Result - Final documented in this encounter Visit Diagnoses Not on filedocumented in this encounter Additional Health Concerns Assessment Noted Time PHQ-9 Depression Total Score: 0 04/08/20 24 9:37 AM EDT documented as of this encounter Care Teams Deep Tissue Massage Therapist Relationship Specialty Start Date End Date Nicole La MD [address] [place] [id number] PCP - General Internal Medicine 07/15/23 documented as of this encounter
--- OUTSIDE RECORDS SUMMARY | 2025-08-04 12:27 | XMS_ITS | Encounter Summary ---
Author Organization [employer] Address [address] [place] [address] [address] [place] [address] Care Team Providers Care Radiation Engineer Name Role Phone Anamika SalazarP Primary Care Provider Nicole Henley MD Primary Care Pro vider Encounter Details Date Type Department Care Team (Late st Contact Info) Description 09/12/2022 Abstract [facility] [address] [place], [place] [phone] Provider, MD Fercho Social History Tobacco Use Types Packs/Day Years Used Date Smoking Tobacco: Never Assessed Sex and Gender Information Value Date Recorded Sex Assigned at Male 08/04/2022 10:38 AM EDT Legal Sex Male 10:38 AM EDT Gender Identity Male 08/04/2022 10:38 AM EDT Sexual Orientation Straight 08/04/2022 10 :38 AM EDT documented as of this encounter Plan of Treatment Not on file documented as of this encounter Visit Diagnoses Not on filedocumented in this encounter Care Teams Radiation Engineer Relationship Specialty Start Date End Date Anamika Salazar FNP PCP - General Family Medicine 05/30/22 07/14/23 Nicole La MD [address] [place], [place] [phone] PCP - General Internal Medicine 07/15/23 documented as of this encounter
--- OUTSIDE RECORDS SUMMARY | 2025-08-04 12:27 | XMS_ITS | Encounter Summary ---
Author Organization [employer] Address [address] [facility] [address] [place] [address] Care Team Providers Care English Language Learner Teacher Name Role Phone Anamika Salazar Primary Care Provider Nicole Henley MD Primary Care Pro vider Encounter Details Date Type Department Care Team (Late st Contact Info) Description 10/16/2022 Telephone [facility] [address] [place], [place] [phone] Anamika Salazar FNP Social History Tobacco Use Types Packs/Day Years Used Date Smoking Tobacco: Every Day Cigarettes 1 7 Smokeless Tobacco: Never Alcohol Use Standard Drinks/Week Comments Not Currently 0 (1 standard drink = 0.6 oz pur e alcohol) Depression Answer Date Recorded Patient Health Questionnaire-9 Score 0 09/18/2022 Sex and Gender Information Value Date Recorded [...] suspected to have Coronavirus/COVID-19? No / Unsure 09/18/2022 9:21 AM EST documented as of this encounter Plan of Treatment Not on file documented as of this encounter Visit Diagnoses Not on filedocumented in this encounter Additional Health Concerns Assessment Noted Time PHQ-9 Depression Total Score: 0 09/18/20 9:29 AM EST documented as of this encounter Care Teams English Language Learner Teacher Relationship Specialty Start Date End Date Anamika Salazar FNP PCP - General Family Medicine 05/30/22 07/14/23 Nicole La MD [address] [place] [phone] PCP - General Internal Medicine 07/15/23 documented as of this encounter
--- OUTSIDE RECORDS SUMMARY | 2025-08-04 12:27 | XMS_ITS | Clinical Summary ---
Author Organization [employer] Address [address] [facility] [address] [place] [address] Care Team Providers Care Office Machine Mechanic Name Role Phone Nicole La MD Primary Care Pro vider Allergies Active Allergy Reactions Criticality Noted Date Comments Amoxicillin Angioedema 09/17/2022 Facial swelling Pt reports he Completed Keflex prescribed 10/31/22. : w no SE in case is needed in future cephalosporins can be used Penicillin G 09/16/2022 Other reaction(s): Facial swelling Pt reports he Completed Keflex prescribed 10/31/22. : w no SE in case is needed in future cephalosporins can be used Medications albuterol (5 MG/ML) 0.5% nebulizer solution Inhale 0.5 mL. inhale 0.5 milliliter by nebulization route every day 07/21/20 22 Active Ubiquinol 30 % powder Active chlorthalidone (Hygroton) 25 MG tabletIndications: Primary hypertension Take 1 tablet (25 mg) by mouth in the morning. 90 tablet 1 01/27/20 23 Active olmesartan (Benicar) 20 MG tabletIndications: Primary hypertension Take 1 tablet (20 mg) by mouth in the morning. 90 tablet 1 11/24/19 24 Active Multiple Vitamin (multivitamin) capsule Take 1 capsule by mouth Once per day. Active atorvastatin (Lipitor) 20 MG tabletIndications: Mixed hyperlipidemia TAKE 1 TABLET BY MOUTH EVERY DAY 90 tablet 1 07/21/20 24 Active nicotine (Nicoderm CQ) 21 MG/24HR patchIndications:C igarette nicotine dependence without complication Apply 1 patch on the skin (one) time each day at the same time x 6 weeks. 42 patch 10/21/19 25 Active albuterol 108 (90 Base) MCG/ACT inhalerIndications :Moderate persistent asthma without complication Inhale 2 puffs every 4 (four) hours. 18 g 3 05/01/20 25 Active tiotropium (Spiriva HandiHaler) 18 MCG inhalation capsuleIndications :Chronic obstructive pulmonary disease, unspecified COPD type (CMS/HCC) ([facility]) Place 1 capsule (18 mcg) into inhaler and inhale in the morning. 30 capsule 11 05/01/20 25 026 Active furosemide (Lasix) 20 MG tabletIndications: Venous insufficiency of both lower extremities,Leg edema TAKE 2 TABLETS BY MOUTH ONCE DAILY 60 tablet 1 05/01/20 25 Active Active Problems Problem Noted Date Diagnosed Date Preop examination 08/04/2025 History of drug use 04/08/2024 Inguinal lymphadenopathy 04/08/2024 Cellulitis of right leg 04/08/2024 Penicillin allergy 04/08/2024 History of small bowel obstruction 04/08/2024 Prediabetes 02/19/2024 Onychomycosis 02/19/2024 Healthcare maintenance 11/24/2023 Assessment & Plan (11/24/2023 8:10 PM EST): Referral to gastroenterology for colonoscopy Chronic obstructive pulmonary disease 04/07/2023 Overview (04/07/2023): Hx c/w asthma COPD overlap syndrome Using spiriva daily AMITA PRN Referral to pulmonology already placed PFTS scheduled for April 2023 Assessment & Plan (11/24/2023 8:08 PM EST): Hx c/w asthma COPD overlap syndrome Using spiriva prn AMITA PRN Denies symptoms today Assessment & Plan (04/07/2023 9:46 PM EDT): Hx c/w asthma COPD overlap syndrome Using spiriva daily Referral to pulmonology already placed F/u 1 month or sooner PRN Primary hypertension 04/07/2023 Overview (04/07/2023): Elevated at previous visits Taking Chlorthalidone 25mg daily; Olmesartan 20mg daily Educated on side effects Encouraged pt to check BP daily at home, log results Assessment & Plan (11/24/2023 8:09 PM EST): Pt reports he stopped meds due to not wanting to take them, discussion about javier risk of CT or stroke, pt willing to resume medications. Stagger resumption by 2- 3 days. Reinitiate home bp measurements Assessment & Plan (04/07/2023 9:50 PM EDT): BP 130/94 today 03/27/23 Improved from 01/26/23 Continue regimen F/u 1 month or sooner PRN Varicose veins of leg with swelling, bilateral 0 12/28/2022 Overview (04/07/2023): Care managed by Vascular surgeon Venoseal procedure 01/09/23, tolerated well appt 01/27/23 - lasix 20mg 2 tablets daily No current inflammation of legs, cellulitis, or leg pains Swelling still present Assessment & Plan (04/07/2023 9:55 PM EDT): No upcoming appt w/ Vascular RTC if leg swelling worsens, leg pain onset, Skin becomes red, hot, infected Continue lasix, refill F/u 1 month or sooner PRN Morbid obesity (CMS/HCC) 09/18/2022 Assessment & Plan (11/24/2023 8:14 PM EST): Encouraged increasing fruits and vegetables. Has been losing weight on own Metabolic labs ordered Venous insufficiency of both lower extremities 1 Nicotine dependence 07/21/2022 Overview (04/07/2023): Declines smoking cessation aids Cutting back Current 3/4 pack daily Assessment & Plan (11/24/2023 8:12 PM EST): Declines smoking cessation aids today Hyperlipidemia 04/13/2021 Overview (04/07/2023): Pt not taking statin Educated pt on importance of taking every day Lipid panel elevated 07/21/22. Will increase statin dose to Atorvastatin 20mg 1 tablet daily at bedtime Will check lipid panel, pending 01/26/23 Assessment & Plan (11/24/2023 8:11 PM EST): Pt willing to resume statin, lipids ordered Assessment & Plan (04/07/2023 9:56 PM EDT): Educated pt on importance of taking every day Avoid grapefruit juice Will go to lab for lipid panel Rx Eleele 3, 2 capsules BID d/t elevated TG in 07/21/22 Followup 1 month or sooner PRN Asthma 03/23/2021 Overview (04/07/2023): PFTs scheduled in April. Tobacco and Marijuana smoker daily. Trying to cut back Spiriva daily + AMITA use PRN Assessment & Plan (04/07/2023 9:54 PM EDT): Hx c/w asthma COPD overlap syndrome Using spiriva daily Referral to pulmonology already placed Followup 1 month or sooner PRN Resolved Problems Problem Noted Date Diagnosed Date Resolved Date Tachycardia 02/19/2024 04/08/2024 Cellulitis of left lower extremity 11/24/2023 04/08/2024 Assessment & Plan (11/24/2023 8:10 PM EST): Unilateral increased swelling, diffuse erythema and pain, Stat dopplar ultrasound ordered, Start doxycyline, Medication Indications, side effects and duration of therapy reviewed, pt aware to call clinic for worsening symptoms or failure to resolve Rtc in 1 week Unilateral edema of lower extremity 11/24/2023 04/08/2024 Assessment & Plan (11/24/2023 8:13 PM EST): Unilateral increased swelling, diffuse erythema and pain, Stat dopplar ultrasound ordered, Educated regarding signs/sympotms requiring evaluation in ER tonight including localized leg pain, increased swelling, or chest pain or shortness of breath Pt verbalizes understanding Cocaine use 03/25/2023 04/08/2024 Heroin use 03/25/2023 04/08/2024 Cardiovascular event risk 09/12/2022 Depressive disorder 03/23/2021 04/08/20 24 Encounters Date Type Department Care Team Description 08/04/2025 10:00 AM EDT Office Visit [facility] [address] [place] [address] Morbid obesity (CMS/HCC) (HCC) (Primary Dx); Venous insufficiency of both lower extremities; Penicillin allergy; Preop examination 08/04/2025 Travel 08/03/2025 Telephone [facility] [address] [place], [place] [phone] Nicole La MD Chart Prep 07/17/2025 Telephone [facility] [address] [place], [place] [phone] Nicole La MD Pre-op Exam 06/13/2025 8:40 AM EDT Office Visit [facility] [address] [place], [place] [phone] Becky Goldstein MD Cellulitis of left lower leg (Primary Dx) 06/13/2025 Travel 05/15/2025 Telephone [facility] [address] [place], [place] [phone] Nicole La MD oct recall from Last 3 Months Immunizations Immunization Administration Dates Next Due Influenza, IIV3, injectable 08/09/2010 Td (adult), unspecified 06/07/2014 Family History * Patient is adopted Relation Name Status Comments Father Unknown Mother Unknown Social History Tobacco Use Types Packs/Day Years Used Date Smoking Tobacco: Every Day Cigarettes 0.8 7 Passive Smoke Exposure: Current Smokeless Tobacco: Never Tobacco Cessation:Ready to Q uit: Not Asked; Counseling Given: Not Answered Comments:Started smoking at his 12 y of [...] housing situation today? I have elsa rhodes 08/04/[address] you [...] Orientation Straight 08/04/2022 10 :38 AM EDT Last Filed Vital Signs Vital Sign Reading [...] Mass Index 41.5 08/04/2025 10:07 AM EDT Plan of Treatment Health Maintenance Due Date Last Done Comments CT Colonography 1976 FIT DNA/Cologuard 1976 FIT 1976 FOBT 1976 Sigmoidoscopy 1976 Family Planning (PISQ) 12/28/1991 Hepatitis B Vaccines (1 of 3 - 19+ 3-dose series) 12/28/1995 Pneumococcal Vaccine: Pediatrics (0 to 5 Years) and At-Risk Patients (6 to 49) Years (1 of 2 - PCV) 12/28/1995 DTaP/Tdap/Td Vaccines (1 - Tdap) 06/08/2014 06/07/2014 Diabetes: Hemoglobin A1C 05/24/2025 024, 02/19/2024, 07/21/2022 COVID-19 Vaccine (1 - 2023-2 5 season) 2025 Influenza Vaccine (#1) 2025 08/09/2010 Colonoscopy 08/18/2025 08/18/2024 Colorectal Cancer Screening 08/18/2025 Alcohol/Substance Use Screening 08/04/2026 08/04/2025 Depression Screening 08/04/2026 08/04/2025, 08/04/2025 Disability Screening 08/04/2026 08/04/2025 SDOH Screening 08/04/2026 08/04/2025 Tobacco Screening 08/04/2026 08/04/2025 Zoster Vaccines (1 of 2) 2026 Lipid Panel 05/24/2029 05/24/2024, 07/21/2022, 03/22/2021 RSV Patients and Patients Aged 60 years or older (1 - 1-dose 75+ series) 12/28/2051 HIV Screening Completed 05/24/2024, 03/22/2021 Hepatitis C Screening Completed 05/24/2024 , 03/22/2021 HIB Vaccines Aged Out No longer eligi ble based on patient's age to complete this topic HPV Vaccines Aged Out No longer eligi ble based on patient's age to complete this topic Hepatitis A Vaccines Aged Out No long er eligible based on patient's age to complete this topic IPV Vaccines Aged Out No longer eligi ble based on patient's age to complete this topic Meningococcal B Vaccine Aged Out No l onger eligible based on patient's age to complete this topic Meningococcal Vaccine Aged Out No rory shavon eligible based on patient's age to complete this topic RSV under 20 months Aged Out No longe r eligible based on patient's age to complete this topic Rotavirus Vaccines Aged Out No longer eligible based on patient's age to complete this topic Procedures Procedure Name Priority Date/Time Associated Diagnosis Comments ECG 12-LEAD Routine 08/04/2025 11:24 AM EDT Preop examination COLONOSCOPY Routine 08/18/2024 8:19 AM EST HEPATITIS C AB W/REFL TO HCV RNA, QN, PCR Routine 05/24/2024 10:00 AM EDT Annual physical exam HIV 1/2 ANTIGEN/ANTIBODY, FOURTH GENERATION W/RFL Routine 05/24/2024 10:00 AM EDT Annual physical exam HEMOGLOBIN A1C Routine 05/24/2024 10:00 AM EDT Morbid obesity (CMS/HCC) LIPID PANEL, STANDARD Routine 05/24/2024 10:00 AM EDT Morbid obesity (CMS/HCC) from Last 3 Months or Most Recently Relevant to Health Maintenance Results * ECG 12 lead (08/04/2025 11:24 AM EDT) Narrative Suzette Anderson NP - 08/04/2025 11:24 AM EDT Normal sinus rhythm HR- [address] changes Suzette Anderson NP ECG ORDERABLES Final Result * Colonoscopy (08/18/2024 8:19 AM EST) Colonoscopy Normal Normal Narrative Vero Lee - 08/18/2024 8:19 AM EST Recommendations: Repeat colo within 12 months (see external hospital admission note on 08/18/2024 Historical Provider HEALTH MAINTENANCE Edited Result - Final * Hepatitis C Antibody with Reflex to HCV, RNA, Quantitative, Real-Time PCR (05/24/2024 10:00 AM EDT) Hepatitis C Antibody Nonreactive Nonreactive [facility] Comment:Antibodies to HCV no t detected; does not exclude early acuteHCV infection. Blood Venous blood specimen / Unknown 05/24/2024 10:00 AM EDT 05/24/2024 11:14 AM EDT Nicole Slaughter MD LAB BLOOD ORDERAB LES Final Result Performing Organization Address [facility]/ZIP Co de Phone Number [facility] [address] [place] [phone] * HIV-1/2 Antigen and Antibodies, Fourth Generation, with Reflexes (05/24/2024 10:00 AM EDT) HIV AB/AG Nonreactive Nonreactive [facility] Comment:HIV-1 p24 Ag and/or HIV-1/HIV-2 Ab not detected.A test result that is nonreactive does not exclude thepossibility of exposure to or infection with HIV-1 and/orHIV-2. Nonreactive results in this assay for individualswith prior exposure to HIV-1 and/or HIV-2 may be due toantigen and antibody levels that are below the limit ofdetection of this assay.The [employer]imig33 HIV Ag/Ab Combo assay result andsupplemental assay results should be interpreted inconjunction with the patient's clinical presentation,history and other laboratory results. If the results areinconsistent with clinical evidence, additional testing issuggested to confirm the result. Blood Venous blood specimen / Unknown 05/24/2024 10:00 AM EDT 05/24/2024 11:14 AM EDT us Nicole Slaughter MD LAB BLOOD ORDERAB LES Final Result Performing Organization Address City/[facility]/ZIP Co de Phone Number [facility] [address] [place] [phone] * Hemoglobin A1c (05/24/2024 10:00 AM EDT) Hemoglobin A1c 5.4 <6.0 % [facility] Comment:Hemoglobin A1C Refer ence Range Adults: 4.8 - 6.0 % Non diabetic: < 6.0 % Goal: < 7.0 %Additional Action Suggested: > 8.0 %Note: Hemoglobin A1c results are invalid for patients with abnormal amounts of HbF. Blood transfusions may impact the HbA1c concentration in the patient sample. Estimated Average Glucose 108 mg/dL [facility] Comment:eAG = Estimated ave rage glucose which is %A1C expressed asaverage glucose, using the formula of the K6O-IaokytlRrcaaqj Glucose study (ADAG), Diabetes Care, Vol.31,#8,May. 2007 Blood Venous blood specimen / Unknown 05/24/2024 10:00 AM EDT 05/24/2024 11:16 AM EDT us Cynthia Manning NP LAB BLOOD ORDERABLES Final Resul t [facility] [address] [place] [phone] * (ABNORMAL) Lipid Panel, Standard (05/24/2024 10:00 AM EDT) Triglycerides 147 <150 mg/dL [facility] Comment:Desirable Triglyceri de: less than 150 mg/dLBorderline High Triglyceride 150-199 mg/dLHigh Triglyceride: 200-499 mg/dLVery High Triglyceride: greater than or equal to 5OO mg/dL Cholesterol 148 <200 mg/dL [facility] Comment:Desirable Cholestero l: less than 200 mg/dLBorderline High Cholesterol: 200-239 mg/dLHigh Cholesterol: greater than 239 mg/dL LDL Cholesterol Calculated 85 <100 mg/dL [facility] Comment:Desirable LDL: less than 100 mg/dLNear Optimal/Above Optimal LDL: 110- 129 mg/dLBorderline High LDL: 130-159 mg/dLHigh LDL: 160-189 mg/dLVery High LDL: greater than or equal to 190 mg/dL HDL Cholesterol 34(L) >40 mg/dL [facility] Comment:Desirable HDL: great er than 40 mg/dL Note: This HDL assay may give artificially low results in patients with liver disease. Blood Venous blood specimen / Unknown 05/24/2024 10:00 AM EDT 05/24/2024 11:14 AM EDT us Cynthia Manning ONLINE JOURNALIST LAB BLOOD ORDERABLES Final Resul t [facility] [address] [place] [address] [phone] from Last 3 Months or Most Recently Relevant to Health Maintenance Insurance [employer] 2 Care Teams Office Machine Mechanic Relationship Specialty Start Date End Date Nicole La MD [address] [place] [phone] PCP - General Internal Medicine 07/15/23
--- OUTSIDE RECORDS SUMMARY | 2025-08-04 12:27 | XMS_ITS | Encounter Summary ---
Author Organization [employer] Address [address] [facility] [address] [place] [address] Care Team Providers Care Sheet Metal Roofer Name Role Phone Nicole La MD Primary Care Pro vider Reason for Visit * Reason Onset Date Comments Chart Prep 08/03/2025 Encounter Details Date Type Department Care Team (Late st Contact Info) Description 08/03/2025 Telephone [facility] [address] [place] [phone] Nicole La MD [address] [place] [address] Chart Prep Social History Tobacco Use Types Packs/Day Years [...] AM EDT documented as of this encounter Miscellaneous Notes * Telephone Encounter - Med Gabriel [place] - 08/03/2025 9:06 AM EDT Chart Prep Labs: not applicable Images: not applicable Referrals: not applicable Vaccines due: Covid, Flu, PCV20, Hep B, and DTAP Screenings: Alcohol/Substance Use Screening Overdue care gaps: A1c, Glucose, SBIRT, SDOH, PHQ-9, JAGRUTI-7, Oral health screening, Disability screen, and Tobacco Date of Surgery: n/a Surgical procedure being done: Implant surgery Type of anesthesia: general anesthesia Lab needed: Yes EKG: Yes Surgeon's name: Dr. Sky woods Facility name: [facility] Surgeon's office number: [phone] Surgeon's office fax number: [phone] Contact name (person you spoke with): p documented in this encounter Plan of Treatment Not on file documented as of this encounter Visit Diagnoses Not on filedocumented in this encounter Additional Health Concerns Assessment Noted Time PHQ-9 Depression Total Score: 0 04/08/20 9:37 AM EDT documented as of this encounter Care Teams Sheet Metal Roofer Relationship Specialty Start Date End Date Nicole La MD [address] [place] [phone] PCP - General Internal Medicine 07/15/23 documented as of this encounter
--- OUTSIDE RECORDS SUMMARY | 2025-08-04 12:27 | XMS_ITS | Encounter Summary ---
Author Organization [employer] Address [address] [facility] [address] [place] [address] Care Team Providers Care Maintenance Mechanic Telephone Name Role Phone Nicole La MD Primary Care Pro vider Encounter Details Date Type Department Care Team (Latest Contact Info) Description 08/04/2025 Travel Social History Tobacco Use Types Packs/Day Years [...] AM EDT documented as of this encounter Functional Status * Over the past 2 weeks, how often have you been bothered by any of the following problems? Question Answer Date of Assessment Author Patient Health Questionnaire -2 Score 0 08/04/2025 10:20 AM Garland Martin MA * Little interest or pleasure in doing things Answer Date of Assessment Author Not at all 08/04/2025 10:20 AM Madeline Martin MA * Feeling down, depressed, or hopeless Answer Date of Assessment Author Not at all 08/04/2025 10:20 AM Madeline Martin MA * Trouble falling or staying asleep, [...] about different things 1 08/04/2025 10:21 AM Garland Martin MA Trouble relaxing 0 08/04/2025 10:21 AM Madeline Martin MA Being so restless that it is hard to sit still 0 08/04/2025 10:21 AM Garland Martin MA Becoming easily annoyed or irritable 1 08/04/2025 10:21 AM Garland Martin MA Feeling afraid as if somethi ng awful might happen 0 08/04/2025 10:21 AM Garland Martin MA JAGRUTI-7 Total Score 3 08/04/2025 10:21 AM Madeline Martin MA documented as of this encounter Plan of Treatment Not on file documented as of this encounter Visit Diagnoses Not on filedocumented in this encounter Additional Health Concerns Assessment Noted Time PHQ-9 Depression Total Score: 1 08/04/20 25 10:20 AM EDT documented as of this encounter Care Teams Maintenance Mechanic Telephone Relationship Specialty Start Date End Date Nicole La MD [address] [place] [phone] PCP - General Internal Medicine 07/15/23 documented as of this encounter
--- OUTSIDE RECORDS SUMMARY | 2025-08-04 12:27 | XMS_ITS | Encounter Summary ---
Author Organization [employer] Address [address] [facility] 7[address] [place] [address] Care Team Providers Care Odd Piece Checker Name Role Phone Anamika Salazar PROCTOLOGIST Primary Care Provider Nicole Henley MD Primary Care Pro vider Reason for Visit * Reason Onset Date Comments triage 09/05/2022 Hospital Follow-up 09/05/2022 Encounter Details Date Type Department Care Team (Late st Contact Info) Description 09/05/2022 Telephone [facility] MED[facility] [address] [place] [address] Anamika Salazar FNP triage ; Hospital Follow-up Social History Tobacco Use Types Packs/Day Years Used Date Smoking Tobacco: Never Assessed Sex and Gender Information Value Date Recorded Sex Assigned at Male 08/04/2022 10:38 AM EDT Legal Sex Male 10:38 AM EDT Gender Identity Male 08/04/2022 10:38 AM EDT Sexual Orientation Straight 08/04/2022 10 :38 AM EDT documented as of this encounter Miscellaneous Notes * Telephone Encounter - Jazzy Lauren - 09/12/2022 12:24 PM EST Patient calling for F follow up appointment. Patient hospitalized at [facility] and discharged on 09-06-22 Patient advised will forward to team nurse for follow up and appointment scheduling. ( Pt is requesting medication refill on Sulfamethoxazole ) prescribe by Hospital * Telephone Encounter - Keerthi Reilly RN - 09/05/2022 4:46 PM EST Call to pt, reports having hx of leg edema. Has appt on 09/30 with specialist. Per pt after using eliptical yesterday. Pt reports this morning having redness, swelling, tender to touch, warmth of right inner knee. Pt denies any CP or SOB. Pt advise of disposition, agrees to go to [facility] for exam now. Reviewed to return call for follow up on Thursday after discharge. Will send as FYI for status check to Blue team nurses. Protocol Used: Leg Swelling and Edema (Adult) Protocol-Based Disposition: Go to ED/[facility] Now Video visit offer not recorded Positive Triage Question: * Fever and red area (or area very tender to touch) * All higher-acuity triage questions were negative Care Advice Discussed: * Reasons To Call Back - You become worse * Telephone Encounter - Bela Hudson - 09/05/2022 1:57 PM EST Tc from pt calling to inform an edema has occurred on leg and is painful and red. documented in this encounter Plan of Treatment Not on file documented as of this encounter Visit Diagnoses Not on filedocumented in this encounter Care Teams Odd Piece Checker Relationship Specialty Start Date End Date Anamika Salazar FNP PCP - General Family Medicine 05/30/22 07/14/23 Nicole La MD [address] [place] [phone] PCP - General Internal Medicine 07/15/23 documented as of this encounter
--- OUTSIDE RECORDS SUMMARY | 2025-08-04 12:27 | XMS_ITS | Encounter Summary ---
Author Organization [employer] Address [address] [facility] [address] [place] [address] Care Team Providers Care Cattle Examiner Name Role Phone Nicole La MD Primary Care Pro vider Reason for Visit * Reason Comments Med Change Request Encounter Details Date Type Department Care Team ([facility] st Contact Info) Description 11/09/2024 Refill [facility] MED[facility]INE [address] [place], [place] [phone] Becky Goldstein MD [address] [place], [place] [phone] Venous insufficiency of both lower extremities; Leg edema Social History Tobacco Use Types Packs/Day Years [...] documented as of this encounter Visit Diagnoses Diagnosis Venous insufficiency of both lower extremities Leg edema Edema documented in this encounter Additional Health Concerns Assessment Noted Time PHQ-9 Depression Total Score: 0 04/08/20 24 9:37 AM EDT documented as of this encounter Care Teams Cattle Examiner Relationship Specialty Start Date End Date Nicole La MD [address] [place] [phone] PCP - General Internal Medicine 07/15/23 documented as of this encounter
[2025-08-04 13:14] LABS: MANUAL DIFF FLAG NO
[2025-08-04 13:23] LABS: Hematocrit 42.3 % (42.0-52.0); Hemoglobin 13.8 g/dl (14.0-18.0); Imm Gran Abs Auto 0.04 X10*3/uL (0.00-0.03); Imm Gran Pct Auto 0.4 % (0.0-0.4); Lymphocytes Absolute Auto 2.5 X10*3/uL (1.2-4.9); Mean Corpuscular HGB Conc 32.6 g/dl (31.0-36.0); Mean Corpuscular Hemoglobin 28.2 pg (27.0-33.0); Mean Corpuscular Volume 86.3 fL (80.0-98.0); NRBC Abs Auto 0.000 X10*3/uL (0.0-0.012); NRBC Pct Auto 0.0 /100WBC (0.0-0.2); Platelet Count 269 X10*3/uL (160-400); Red Blood Count 4.90 X10*6/uL (4.60-5.80); White Blood Count 10.6 X10*3/uL (4.8-10.8)
[2025-08-04 14:14] LABS: Anion Gap 10 (12-20); Blood Urea Nitrogen 17 mg/dL (9-16); Calcium 9.7 mg/dL (8.4-10.2); Carbon Dioxide 33 mmol/L (22-29); Chloride 102 mmol/L (96-108); Estimated Glomerular Filt Rate > 60; Potassium 4.0 mmol/L (3.3-5.1); Sodium 141 mmol/L (135-145)
== END 2025-08-04 10:58 | disposition home or self-care (01) ==
LOC: HO.HHCL 10:57
PROVIDERS: PCP Student in an Organized Health Care Education/Training Program; Visit Provider Dentist Oral and Maxillofacial Surgery
DX: Z01.818 Encounter for other preprocedural examination (principal)
CPT/HCPCS: 36415; 80048; 85025